=== PATIENT | male | born 1965 | race Caucasian/White ===

== ENCOUNTER 2019-07-17 04:18 | Emergency (ER) | payer SELFPAY ==
[2019-07-17 04:37] VITALS: TEMP 97.4
[2019-07-17] MEDS ORDERED: methylPREDNISolone SODIUM SUC 125 MG/2 ML VIAL ONE (04:48)
[2019-07-17] MEDS: predniSONE 20 MG TAB PO ONE (04:51)
[2019-07-17] MEDS: diphenhydrAMINE HCL 25 MG CAP PO ONE (04:51)
[2019-07-17] MEDS: diphenhydrAMINE HCL 50 MG/ML VIAL IV ONE (04:53)
[2019-07-17] MEDS: methylPREDNISolone SODIUM SUC 125 MG/2 ML VIAL IV ONE (04:53)
[2019-07-17] MEDS ORDERED: FAMOTIDINE IV PREMIX 50 ML IVPB ONE (05:55)
[2019-07-17] MEDS: FAMOTIDINE IV PREMIX 20 MG in PREMIX BAG 1 BAG IVPB ONE (05:57)
[2019-07-17] MEDS: hydrALAZINE HCl 20 MG/ML VIAL IV ONE (05:57)
--- NOTE | 2019-07-17 06:33 | ED.PDOC ---
History of Present Illness - General Chief Complaint: General Stated Complaint: facial swelling Time Seen by Provider: 07/17/19 04:44 - History of Present Illness Initial Comments: Patient is a 54 year old with no sig pmh who presents c/o L sided facial and tongue swelling. Says that he has been having mild tongue swelling off and on for the past couple of months but that tonight the swelling was much worse than usual and so came to the ER. Reports some difficulty swallowing and feeling like his tongue is "numb" as well. He has h/o htn but is not taking any medications. Denies any new foods or other allergies. Allergies/Adverse Reactions: Allergies NO KNOWN ALLERGY Allergy (Unverified 04/08/15 01:27) Home Medications: Ambulatory Orders Amlodipine Besylate [Norvasc] 5 mg PO DAILY #60 tab 07/17/19 Epinephrine [Epipen 2-Juan] 0.3 mg IJ ONCE PRN #1 ml 07/17/19 Review of Systems - Review of Systems Constitutional: States: no symptoms reported EENTM: States: mouth swelling Respiratory: States: no symptoms reported Cardiology: States: no symptoms reported Gastrointestinal/Abdominal: States: no symptoms reported Genitourinary: States: no symptoms reported Musculoskeletal: States: no symptoms reported Skin: States: no symptoms reported Neurological: States: numbness. Denies: headache Endocrine: States: no symptoms reported Hematologic/Lymphatic: States: no symptoms reported All other Systems: Reviewed and Negative Past Medical History (General) - Patient Medical History Hx Congestive Heart Failure: No Hx Hypertension: Yes Hx Diabetes: No Hx Cancer: No - Vaccination History Hx Tetanus, Diphtheria Vaccination: - unknown Hx Influenza Vaccination: No - Social History Hx Alcohol Use: Yes Family Medical History - Family History Mother Family History: Unknown Physical Exam - Physical Exam General Appearance: Alert, Comfortable Eye Exam: bilateral normal Ears, Nose, Throat: other - mild tongue swelling with notable L facial swelling. normal phonation, no stridor Neck: full range of motion, supple Respiratory: lungs clear, normal breath sounds Cardiovascular/Chest: regular rate, rhythm, no edema Gastrointestinal/Abdominal: non tender, soft Extremity: non-tender, normal inspection Neurologic: no motor/sensory deficits, alert, normal mood/affect, oriented x 3 Skin Exam: normal color, warm/dry Progress - Progress Progress: 07/17/19 06:34 MDM Patient w/ h/o htn here with mild-moderate tongue swelling and slight left facial swelling. ? angioedema vs allergic reaction. No clear etiology of symptoms. He was treated with solumedrol, benadryl and pepcid and has had sign ificant improvement. BP is significantly elevated as well. Will d/c with epi pen and have patient f/u with pcp. Departure - Departure Clinical Impression: Tongue swelling, Left facial swelling Disposition: Discharge to Home or Self Care Condition: Good Departure Forms: ED Discharge - Pt. Copy, Patient Portal Self Enrollment Prescriptions: Amlodipine Besylate [Norvasc] 5 mg PO DAILY #60 tab Epinephrine [Epipen 2-Juan] 0.3 mg IJ ONCE PRN #1 ml PRN Reason: Allergies Home Medications: Ambulatory Orders Amlodipine Besylate [Norvasc] 5 mg PO DAILY #60 tab 07/17/19 Epinephrine [Epipen 2-Juan] 0.3 mg IJ ONCE PRN #1 ml 07/17/19
[2019-07-17 06:35] VITALS: BP 189/111; O2SAT 97
== END 2019-07-17 06:48 | disposition home or self-care (01) ==
LOC: ER 04:18
DX: R22.0 Localized swelling, mass and lump, head (principal); R20.2 Paresthesia of skin; I10 Essential (primary) hypertension
CPT/HCPCS: J0360; J1200; J2930; J3490

== ENCOUNTER → 2019-08-03 | Outpatient (CLI) | payer OTHER ==
--- NOTE | 2019-08-04 16:40 | CT ---
Procedure: CT LUNG SCREENING Exam Date: 08/03/2019. Ordering Provider: Denzel Ramos Clinical Indication: PERSONAL HISTORY OF TOBACCO USE . Current cigarette smoker. 60-80 pack years. This patient meets eligibility criteria for low-dose CT lung cancer screening. Comparison: None. Technique: Using a multislice scanner, sequential helical axial imaging was obtained in the thorax, 0.65 mm thickness, 2.5 mm separation, from the level of the thoracic inlet through the lung bases without IV contrast. A low dose protocol was utilized for BMI greater than 30: BMI: 34.3. CTDI: 2.94 mGy. 120. kVp. 75 mA. 2D sagittal and coronal reconstructed images, 6.0 mm thickness, were obtained. This exam was performed according to our departmental dose optimization program which includes use of automated exposure control, adjustment of the mA and/or kV according to patient size and/or use of iterative reconstruction technique. Nodule measurements under 10 mm are given as mean value of 3 axes diameters. FINDINGS: Lungs and large airways: Thickened para septal dilated airspaces with some blebs and occasional bulla more in the bilateral lung apices. Also seen in the bilateral hesham. Calcified subpleural nodule abutting the lateral superior segment right lower lobe. No abnormal nodules or masses. No focal infiltrates. Pleura and space: Bilateral focal pleural thickening. Mediastinum and hesham: evaluation limited by low dose technique and lack of IV contrast. Small lymph nodes. Largest 9 mm diameter. No dominant soft tissue masses. Heart and great vessels: Coronary artery calcifications and stents. Minimal atherosclerotic calcification in the aorta. Chest wall, lower neck, axillae: Evaluation also limited by same factors as described above. Small axillary lymph nodes. Upper abdomen: Evaluation limited by low-dose technique. No free fluid or free air. Spleen and adrenal glands normal size and density. Osseous structures: Evaluation limited by low dose MIP technique. Spondylosis midthoracic spine with minimal dextroscoliosis. ACDF lower cervical spine. Mild manubriosternal arthrosis. Prior surgery left shoulder. IMPRESSION: Emphysematous changes in the lungs. No abnormal nodules or masses. No infiltrates.. [facility] Best Practice Recommendations: please see below for Lung RADS category and FOLLOW-UP.* *Lung RADS category Category 1 - No nodule or definitely benign nodules (probability of malignancy less than 1%). Follow-up: Continue annual screening with Low Dose Chest CT in 12 months. Electronically signed by: Onel Ingram MD 08/04/2019 4:39 PM CDT
== END ==
LOC: CT 08:00
PROVIDERS: ATTEND Family Medicine
DX: Z87.891 Personal history of nicotine dependence (principal); J43.9 Emphysema, unspecified

== ENCOUNTER → 2020-02-13 | Outpatient (CLI) | payer OTHER | LOC: YCFC.O 07:08 | PROVIDERS: ATTEND Family Medicine | DX: I10 Essential (primary) hypertension (principal); E78.5 Hyperlipidemia, unspecified; R53.83 Other fatigue; Z12.5 Encounter for screening for malignant neoplasm of prostate ==

== ENCOUNTER → 2020-08-05 | Outpatient (CLI) | payer OTHER ==
--- NOTE | 2020-08-06 08:36 | CT ---
Procedure: CT LUNG SCREENING Exam Date: August 05, 2020. Ordering Provider: Denzel Ramos Clinical Indication: PERSONAL HISTORY OF TOBACCO DEPENDENCE . Current cigarette smoker. 60 pack year history. This patient meets eligibility criteria for low-dose CT lung cancer screening. Comparison: CT low-dose lung cancer screening examination July 2019. Technique: Using a multislice scanner, sequential helical axial imaging was obtained in the thorax, 2.5 mm thickness, 2.5 mm separation, from the level of the thoracic inlet through the lung bases without IV contrast. A low dose protocol was utilized for BMI less than 30: BMI: 25.8. CTDI: 1.75 mGy. 120. kVp. 45 mA. DLP 63 mGy-cm. 2D sagittal and coronal reconstructed images, 6.0 mm thickness, were obtained. This exam was performed according to our departmental dose optimization program which includes use of automated exposure control, adjustment of the mA and/or kV according to patient size and/or use of iterative reconstruction technique. Nodule measurements under 10 mm are given as mean value of 3 axes diameters. FINDINGS: Lungs and large airways: Scattered bilateral parenchymal blebs predominantly upper lung jackson in a centrilobular distribution. Larger blebs in the mid and lower lung jackson. Perihilar peribronchial wall cuffing. Minimal pleuroparenchymal scarring bilaterally. No abnormal nodule and no mass. No focal or new infiltrate. Subpleural calcified granuloma less than 1 cm in diameter in the right lower lobe stable. Pleura and space: No calcifications no acute process. Mediastinum and hesham: evaluation limited by low dose technique and lack of IV contrast. Stable lymph nodes. No dominant soft tissue mass. Heart and great vessels: Calcified coronary arteries with atherosclerotic calcifications in the aorta stable. Chest wall, lower neck, axillae: Evaluation also limited by same factors as described above. Stable normal-sized axillary nodes. Upper abdomen: Evaluation limited by low-dose technique. No free air or free fluid in the included peritoneal space. Osseous structures: Evaluation limited by low dose MIP technique. Minimal spondylosis midthoracic spine. Arthrosis shoulder clavicle sternum and manubrium. IMPRESSION: Minimal emphysema changes and chronic bronchial wall thickening. No new nodules or masses. No focal or new infiltrate. Stable since the prior study.. [facility] Best Practice Recommendations: please see below for Lung RADS category and FOLLOW-UP.* *Lung RADS category Category 1 - No nodule or definitely benign nodules (probability of malignancy less than 1%). Follow-up: Continue annual screening with Low Dose Chest CT in 12 months. Electronically signed by: Onel Ingram MD 08/06/2020 8:35 AM CDT
== END ==
LOC: CT 08:00
PROVIDERS: ATTEND Family Medicine
DX: Z12.2 Encounter for screening for malignant neoplasm of respiratory organs (principal); J43.9 Emphysema, unspecified; J98.09 Other diseases of bronchus, not elsewhere classified; Z87.891 Personal history of nicotine dependence

== ENCOUNTER → 2020-09-23 | Outpatient (CLI) | payer SELFPAY ==
--- NOTE | 2020-09-24 09:10 | CT ---
EXAM DESCRIPTION: CTA Lower Extremity CLINICAL HISTORY: 55 years Male, I173.9 COMPARISON: February 05, 2011. TECHNIQUE: Intragastric face multidetector CT imaging of the lower extremities. Multiplanar reconstructions were generated. This exam was performed according to our departmental dose-optimization program which includes automated exposure control, adjustment of the mA and/or kV according to patient size and/or use of iterative reconstruction technique. Maximum intensity projection imaging. No surface rendered 3-D images were made available. FINDINGS: Saccular aneurysmal dilatation of the infrarenal abdominal aorta measures up to 2.6 cm in the maximum transverse dimension. The aneurysm sac extends to the right with a basilar transverse dimension of 1.7 cm extending for length of approximately 1.7 cm. This is a new finding from 2010. Vasculature of the renal arteries and above is not included on the study. Inferior mesenteric artery remains patent.. There is near complete occlusion of the distal abdominal aorta extending into the proximal aspects of the bilateral common iliac vessels. A stent is present within the left common iliac. There is a thread of contrast enhancement from the distal abdominal aorta extending into both the the common iliac vessels consistent with a stenosis of at least 90% although likely greater. Right side: Severe narrowing origin right common iliac artery. Severe narrowing at the origin of the right hypogastric artery. The right external iliac artery is patent. Mild atherosclerotic narrowing of the right common femoral artery just prior to the bifurcation. The profunda femoris is patent. Mild multifocal disease is seen within the proximal superficial femoral artery. Mild disease is seen within the popliteal artery. Positive flow runoff of the trifurcation vessels to the ankle. Left side: Severe narrowing within the left common iliac artery stent. The hypogastric is patent. The left external is patent. There is mild disease within the common femoral just before the bifurcation. The profunda femoris is patent. Mild multifocal disease is seen within the proximal and more distal superficial femoral artery. Mild disease is present within the popliteal artery. There is positive runoff flow flow within the trifurcation vessels to the ankle. Other findings: Nonspecific multilevel disc degeneration and facet arthritis of the lumbar spine. IMPRESSION: Severe aortoiliac atherosclerotic disease that is near occlusive. See above description. 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 This is a new finding from February 05, 2011. Follow-up recommended every 5 years. Electronically signed by: Singh Singh MD 09/24/2020 9:08 AM [facility]
== END ==
LOC: CT 14:48
PROVIDERS: ATTEND Family Medicine
DX: I73.9 Peripheral vascular disease, unspecified (principal); I71.4 Abdominal aortic aneurysm, without rupture; I70.0 Atherosclerosis of aorta; E78.5 Hyperlipidemia, unspecified

== ENCOUNTER → 2020-10-30 | Outpatient (CLI) | payer BC, OTHER | LOC: RESP 13:55 | PROVIDERS: ATTEND Family Medicine | DX: E78.5 Hyperlipidemia, unspecified (principal) ==

== ENCOUNTER → 2020-12-16 | Outpatient (CLI) | payer BC | LOC: YCFC.O 09:37 | PROVIDERS: ATTEND Family Medicine | DX: Z11.52 Encounter for screening for COVID-19 (principal) ==